=== PATIENT | male | born 1985 | race Caucasian/White ===

== ENCOUNTER 2019-06-20 19:35 | Observation (INO) | payer BC, MEDICAID ==
[2019-06-20 20:09] LABS: CHLORIDE,CL 103 mmol/L (98-107); SODIUM,NA 142 mmol/L (136-145)
[2019-06-20] MEDS ORDERED: Iopamidol 612 MG/ML 100 ML Bottle IVPUSH STA (20:12)
[2019-06-20] MEDS ORDERED: Sodium Chloride 0.9% 1,000 ML IV ONE ×2 (20:14→23:00)
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
[2019-06-20] MEDS ORDERED: Ondansetron 4 MG/2 ML SDV IVPUSH ONE (20:50)
[2019-06-20] MEDS ORDERED: Morphine 2 MG/ML Syringe IVPUSH ONE (20:50)
[2019-06-20] MEDS: Sodium Chloride 0.9% 10 ML Syringe FLUSH PRN (20:57)
[2019-06-20] MEDS ORDERED: Acetaminophen 325 MG Tab PO PRN (21:37)
[2019-06-20] MEDS ORDERED: Morphine 2 MG/ML Syringe IVPUSH PRN (21:42)
[2019-06-20] MEDS ORDERED: Ketorolac 30 MG/ML SDV IVPUSH ONE (21:42)
[2019-06-20] MEDS ORDERED: Ondansetron 4 MG/2 ML SDV IVPUSH PRN (21:42)
[2019-06-21 07:18] LABS: CHLORIDE,CL 107 mmol/L (98-107); SODIUM,NA 143 mmol/L (136-145)
--- NOTE | 2019-06-21 09:12 | PCM.DCSUM1 ---
Discharge Summary - Hospital Course HPI Initial Comments: See emergency room note/admission H&P Brief History: See emergency room note/admission H&P Diagnosis: Stroke: No Modified Cameron Scale: No Symptoms at All Modified Cameron Scale Score: 0 - Discharge Data Discharge Date: 06/21/19 Discharge Disposition: Home, Self-Care 01 Condition: Good - Referral to Home Health Primary Care Physician: PCP None - Discharge Diagnosis/Problem(s) (1) Trauma SNOMED Code(s): 395139786 ICD Code: T14.90XA - INJURY, UNSPECIFIED, INITIAL ENCOUNTER Status: Acute Priority: High Current Visit: Yes Onset Date: 06/20/19 Problem Details: Trauma code called by [facility] physician upon patient's arrival to the emergency room. Note moderate left chest wall contusion with second and third left anterior rib fractures by CT scan. Patient placed in observation status for further observation. Patient counseled on the dangers of 4 wheelers with caution advised, including wearing helmets, etc. during use, which the patient is not doing at this time. Symptomatic relief as per discharge instructions. The patient does not need a work excuse by his history. (2) Fracture of two ribs of left side SNOMED Code(s): 76557832 ICD Code: S22.42XA - MULTIPLE FRACTURES OF RIBS, LEFT SIDE, INIT FOR CLOS FX Status: Acute Priority: High Current Visit: Yes Onset Date: 06/20/19 Problem Details: Anterior rib fractures of 2nd and 3rd rib near sternum by CT scan. Otherwise as above. Qualifiers: Encounter type: initial encounter Fracture type: closed Qualified Code(s) : S22.42XA - Multiple fractures of ribs, left side, initial encounter for closed fracture (3) Contusion of chest SNOMED Code(s): 50922249 ICD Code: S20.219A - CONTUSION OF UNSPECIFIED FRONT WALL OF THORAX, INIT ENCNTR Status: Acute Priority: High Current Visit: Yes Onset Date: 06/20 Problem Details: Anterior chest wall pain is stable at this time. Symptomatic relief as per discharge instructions. CT confirmed 2 rib fractures. No other traumatic injuries identified at this time. Qualifiers: Encounter type: initial encounter Laterality: unspecified laterality Qualified Code(s): S20.219A - Contusion of unspecified front wall of thorax, initial encounter (4) Hypocalcemia SNOMED Code(s): 1141552 ICD Code: E83.51 - HYPOCALCEMIA Status: Acute Priority: Medium Current Visit: Yes Onset Date: 06/21/19 Problem Details: Calcium normal on admission. Observe for now. Note patient did receive 2 L of lactated Ringer's by bolus during course of hospitalization and emergency room care. (5) Elevated serum creatinine SNOMED Code(s): 542425197 ICD Code: R79.89 - OTHER SPECIFIED ABNORMAL FINDINGS OF BLOOD CHEMISTRY Status: Acute Priority: Medium Current Visit: Yes Onset Date: 06/20/19 Problem Details: Renal status normal at discharge. Note IV fluids during this hospitalization. - Patient Summary/Data Operative Procedure(s) Performed: None Complications: None Consults: None Labs Pending at D/C: Final radiological report of chest x-ray, PA and lateral, from 06/21/19. Recommended Follow-up Testing/Procedures: As per discharge instructions Planned Operative Procedure(s) after DC: None Hospital Course: The patient was initially evaluated in the emergency room with trauma code called secondary to mechanism of injury. Vital signs, physical exam, etc. have remained stable during the entire hospitalization. He feels ready to go home and was counseled extensively concerning safety issues of 4 hammonds use, etc., including use of helmets. No complications during this hospitalization with as needed follow-up depending on his clinical course. - Patient Instructions Diet: Regular Diet as Tolerated Activity: Apply Ice, As Tolerated Driving: May Drive Today Showering/Bathing: May Shower Notify Provider of: Fever, Increased Pain, Swelling and Redness, Nausea and/or Vomiting Other/Special Instructions: 1. Follow up with your regular provider in 10-14 days as needed, if symptoms persist. Bring these discharge instructions with you to that visit.. 2. BenGay or equivalent, heating pad, and/or ice packs as directed. 3. Tylenol 650 mg by mouth every 4 hours and/or OTC ibuprofen 2-3 tabs by mouth every 6 hours with food as directed./needed. You may stagger these medications for 48-72 hours only, which essentially means that you are receiving a pain medication about every 2 hours. 4. Immediately after this visit verify that your cellular telephone's voicemail has been activated and is empty. Also verify that your home telephone's answering machine is operating properly and has space to receive messages. Note that it is sometimes necessary for us to be able to contact you at a later date to discuss your medical care. 5. Please remember that we are ALWAYS here for you and want to answer any questions you may have. Feel free to call the hospital any time and we call you back KANDIS. - Discharge Plan *PRESCRIPTION DRUG MONITORING PROGRAM REVIEWED*: Not Applicable *COPY OF PRESCRIPTION DRUG MONITORING REPORT IN PATIENT PADMINI: Not Applicable Home Medications: Home Meds Acetaminophen [Tylenol] 650 mg PO Q4HR PRN 06/20/19 [History] Oxygen Therapy Mode: Room Air Patient Handouts: Incentive Spirometer Forms: ED Department Discharge Referrals: PCP,None [Primary Care Provider] - - Discharge Summary/Plan Comment DC Time >30 min.: Yes (Coordination of care ) Discharge Summary/Plan Comment: As above. Extensive precautions were given to the patient and his , who are in agreement with the treatment plan. See Patient Instructions for further treatment and plan. - General Info Date of Service: 06/21/19 Admission Dx/Problem (Free Text: 1. Trauma 2. Left rib fractures 3. Chest wall contusion Functional Status: Reports: Pain Controlled, Tolerating Diet, Ambulating, Urinating. Denies: New Symptoms, Incentive Spirometry Numeric/FACES Score: 5 - Review of Systems General: Denies: Fever, Weakness, Fatigue, Malaise, Chills, Night Sweats, Appetite (Appetite good) HEENT: Reports: Glasses. Denies: Dysphasia, Ear Pain, Eye Pain, Headaches, Post Nasal Drip, Sinus Congestion, Sore Throat, Visual Changes Pulmonary: Reports: Pleuritic Chest Pain, Other. Denies: Shortness of Breath, Cough, Sputum, Hemoptysis, Wheezing Cardiovascular: Reports: Chest Pain (Left anterior chest wall pain). Denies: Palpitations, Dyspnea on Exertion, Orthopnea, PND, Edema, Lightheadedness Gastrointestinal: Reports: No Symptoms, Other (No bowel movement during this hospitalization). Denies: Abdominal Pain, Constipation, Decreased Appetite, Diarrhea, Difficulty Swallowing, Flatus, Hematochezia, Melena, Nausea, Vomiting Genitourinary: Reports: No Symptoms. Denies: Dysuria, Frequency, Burning, Pain , Urgency, Incontinence, Hematuria, Retention, Flank Pain Musculoskeletal: Reports: No Symptoms. Denies: Neck Pain, Shoulder Pain, Arm Pain, Hand Pain, Back Pain, Leg Pain, Joint Pain, Joint Swelling Skin: Reports: Bruising (Stable left anterior chest wall contusion/ecchymosis). Denies: Jaundice, Pallor, Diaphoresis, Pruritis, Rash Neurological: Reports: No Symptoms. Denies: Confusion, Dizziness, Headache, Numbness, Paresthesia, Tingling, Weakness Psychiatric: Reports: No Symptoms. Denies: Confusion, Depression, Anxiety, Agitation, Cravings, Hallucinations - Patient Data Vitals - Most Recent: Last Vital Signs Temp 36.6 C 06/21/19 07:51 Pulse 77 06/21/19 07:51 Resp 17 06/21/19 07:51 BP 102/63 06/21/19 07:51 Pulse Ox 94 L 06/21/19 07:51 Vital Signs - 24 hr 06/20/19 06/21/19 06/21/19 21:37 00:00 04:00 Temperature [ 37.0 C 36.9 C 36.6 C Oral] Pulse, 84 83 74 Peripheral [ Pulse Oximetry] Respiratory 20 18 16 Rate Blood Pressure 123/88 114/74 113/73 [Right Upper Arm] O2 Sat by Pulse 100 95 95 Oximetry 06/21/19 07:51 Temperature [ 36.6 C Oral] Pulse, 77 Peripheral [ Pulse Oximetry] Respiratory 17 Rate Blood Pressure 102/63 [Right Upper Arm] O2 Sat by Pulse 94 L Oximetry Weight - Most Recent: 88.088 kg I&O - Last 24 hours: Intake & Output 06/20/19 06/21/19 06/21/19 22:59 06:59 14:59 Intake Total 1000 1000 360 Balance 1000 1000 360 Imaging Impressions - Last 24 hrs: Sales Project Administrator shows normal sinus rhythm in the 70s to 80s with no ectopy or arrhythmia Official x-ray reports from 06/21/19 were reviewed once again today as follows: 1. CT scan of the chest with IV contrast shows evidence of left second and third anterior rib fractures with no evidence of sternal fracture, pneumothorax , pulmonary contusions, etc. 2. Chest x-ray, PA and lateral, shows no evidence of acute injury with rib fractures apparently not visualized by this evaluation. Chest x-ray, PA and lateral, on 06/21/19 shows no evidence of Cardiolite, CHF, pulmonary infiltrates, pneumothorax, etc. Rib fractures somewhat difficult to visualize. Lab Results - Last 24 hrs: Laboratory Results - last 24 hr 06/20/19 06/20/19 06/20/19 Range/Units 19:45 19:45 20:06 WBC 8.3 (4.0-10.2) K/uL RBC 5.03 (4.33-5.41) M/uL Hgb 16.1 (13.1-16.8) g/dL Hct 46.6 (39.0-49.0) % MCV 92.6 (84.0-98.0) fL MCH 32.0 (28.2-33.3) pg MCHC 34.5 (31.7-36.0) g/dL RDW 12.5 (11.2-14.1) % Plt Count 263 (150-350) K/uL Neut % (Auto) 71.5 (45.0-80.0) % Lymph % (Auto) 21.7 (10.0-50.0) % [place] % (Auto) 5.5 (2.0-14.0) % Eos % (Auto) 1.1 (0.0-5.0) % Baso % (Auto) 0.2 (0.0-2.0) % Neut # (Auto) 5.93 (1.40-7.00) K/uL Lymph # (Auto) 1.80 (0.50-3.50) K/uL [place]linger # (Auto) 0.46 (0.00-1.00) K/uL Eos # (Auto) 0.09 (0.00-0.50) K/uL Baso # (Auto) 0.02 (0.00-0.20) K/uL Sodium 142 (136-145) mmol/L Potassium 4.0 (3.5-5.1) mmol/L Chloride 103 (98-107) mmol/L Carbon Dioxide 31.1 (21.0-32.0) mmol/L BUN 21 H (7-18) mg/dL Creatinine 1.47 H (0.51-1.17) mg/dL Est Cr Clr Drug Dosing TNP Estimated GFR (MDRD) 55 mL/min Glucose 122 H (74-106) mg/dL Calcium 9.1 (8.5-10.1) mg/dL Magnesium (1.8-2.4) mg/dL Total Bilirubin 0.6 (0.2-1.0) mg/dL AST 25 (15-37) U/L ALT 32 (12-78) U/L Alkaline Phosphatase 81 (46-116) IU/L Creatine Kinase (26-308) U/L Creatine Kinase Index (0.0-2.5) % CK-MB (CK-2) (0.00-3.60) ng/mL Total Protein 8.1 (6.4-8.2) g/dL Albumin 4.4 (3.4-5.0) g/dL Specimen Type Urinblad Urine Color Yellow Urine Appearance Clear Urine pH 7.0 (5.0-9.0) Ur Specific [place] 1.015 (1.005-1.030) Urine Protein Negative (NEGATIVE) mg/dL Urine Glucose (UA) Negative (NEGATIVE) mg/dL Urine Ketones Negative (NEGATIVE) mg/dL Urine Occult Blood Trace-intact H (NEGATIVE) Urine Nitrite Negative (NEGATIVE) Urine Bilirubin Negative (NEGATIVE) Urine Urobilinogen 0.2 (0.2-1.0) E.U./dL Ur Leukocyte Esterase Negative (NEGATIVE) Urine RBC 0-5 /HPF Urine WBC 0-5 /HPF Ur Epithelial Cells Rare /LPF Urine Bacteria Rare (NONE TO FEW) /HPF 06/21/19 06/21/19 06/21/19 Range/Units 07:00 07:00 07:00 WBC 6.8 (4.0-10.2) K/uL RBC 4.30 L (4.33-5.41) M/uL Hgb 13.8 D (13.1-16.8) g/dL Hct 40.7 (39.0-49.0) % MCV 94.7 (84.0-98.0) fL MCH 32.1 (28.2-33.3) pg MCHC 33.9 (31.7-36.0) g/dL RDW 12.6 (11.2-14.1) % Plt Count 195 (150-350) K/uL Neut % (Auto) 69.5 (45.0-80.0) % Lymph % (Auto) 19.6 (10.0-50.0) % Bollinger % (Auto) 10.1 (2.0-14.0) % Eos % (Auto) 0.7 (0.0-5.0) % Baso % (Auto) 0.1 (0.0-2.0) % Neut # (Auto) 4.74 (1.40-7.00) K/uL Lymph # (Auto) 1.34 (0.50-3.50) K/uL Bollinger # (Auto) 0.69 (0.00-1.00) K/uL Eos # (Auto) 0.05 (0.00-0.50) K/uL Baso # (Auto) 0.01 (0.00-0.20) K/uL Sodium 143 (136-145) mmol/L Potassium 4.0 (3.5-5.1) mmol/L Chloride 107 (98-107) mmol/L Carbon Dioxide 25.5 (21.0-32.0) mmol/L BUN 20 H (7-18) mg/dL Creatinine 1.17 (0.51-1.17) mg/dL Est Cr Clr Drug Dosing 88.12 Estimated GFR (MDRD) > 60 mL/min Glucose 106 (74-106) mg/dL Calcium 7.8 L (8.5-10.1) mg/dL Magnesium 2.2 (1.8-2.4) mg/dL Total Bilirubin 0.8 (0.2-1.0) mg/dL AST 17 (15-37) U/L ALT 25 (12-78) U/L Alkaline Phosphatase 64 (46-116) IU/L Creatine Kinase 251 (26-308) U/L Creatine Kinase Index 0.4 (0.0-2.5) % CK-MB (CK-2) 1.10 (0.00-3.60) ng/mL Total Protein 6.4 (6.4-8.2) g/dL Albumin 3.4 (3.4-5.0) g/dL Specimen Type Urine Color Urine Appearance Urine pH (5.0-9.0) Ur Specific [place] (1.005-1.030) Urine Protein (NEGATIVE) mg/dL Urine Glucose (UA) (NEGATIVE) mg/dL Urine Ketones (NEGATIVE) mg/dL Urine Occult Blood (NEGATIVE) Urine Nitrite (NEGATIVE) Urine Bilirubin (NEGATIVE) Urine Urobilinogen (0.2-1.0) E.U./dL Ur Leukocyte Esterase (NEGATIVE) Urine RBC /HPF Urine WBC /HPF Ur Epithelial Cells /LPF Urine Bacteria (NONE TO FEW) /HPF Laboratory Tests 06/20/19 06/20/19 06/20/19 Range/Units 19:45 19:45 20:06 WBC 8.3 (4.0-10.2) K/uL RBC 5.03 (4.33-5.41) M/uL Hgb 16.1 (13.1-16.8) g/dL Hct 46.6 (39.0-49.0) % MCV 92.6 (84.0-98.0) fL MCH 32.0 (28.2-33.3) pg MCHC 34.5 (31.7-36.0) g/dL RDW 12.5 (11.2-14.1) % Plt Count 263 (150-350) K/uL Neut % (Auto) 71.5 (45.0-80.0) % Lymph % (Auto) 21.7 (10.0-50.0) % Bollinger % (Auto) 5.5 (2.0-14.0) % Eos % (Auto) 1.1 (0.0-5.0) % Baso % (Auto) 0.2 (0.0-2.0) % Neut # (Auto) 5.93 (1.40-7.00) K/uL Lymph # (Auto) 1.80 (0.50-3.50) K/uL Bollinger # (Auto) 0.46 (0.00-1.00) K/uL Eos # (Auto) 0.09 (0.00-0.50) K/uL Baso # (Auto) 0.02 (0.00-0.20) K/uL Sodium 142 (136-145) mmol/L Potassium 4.0 (3.5-5.1) mmol/L Chloride 103 (98-107) mmol/L Carbon Dioxide 31.1 (21.0-32.0) mmol/L BUN 21 H (7-18) mg/dL Creatinine 1.47 H (0.51-1.17) mg/dL Est Cr Clr Drug Dosing TNP Estimated GFR (MDRD) 55 mL/min Glucose 122 H (74-106) mg/dL Calcium 9.1 (8.5-10.1) mg/dL Magnesium (1.8-2.4) mg/dL Total Bilirubin 0.6 (0.2-1.0) mg/dL AST 25 (15-37) U/L ALT 32 (12-78) U/L Alkaline Phosphatase 81 (46-116) IU/L Creatine Kinase (26-308) U/L Creatine Kinase Index (0.0-2.5) % CK-MB (CK-2) (0.00-3.60) ng/mL Total Protein 8.1 (6.4-8.2) g/dL Albumin 4.4 (3.4-5.0) g/dL Specimen Type Urinblad Urine Color Yellow Urine Appearance Clear Urine pH 7.0 (5.0-9.0) Ur Specific [place] 1.015 (1.005-1.030) Urine Protein Negative (NEGATIVE) mg/dL Urine Glucose (UA) Negative (NEGATIVE) mg/dL Urine Ketones Negative (NEGATIVE) mg/dL Urine Occult Blood Trace-intact H (NEGATIVE) Urine Nitrite Negative (NEGATIVE) Urine Bilirubin Negative (NEGATIVE) Urine Urobilinogen 0.2 (0.2-1.0) E.U./dL Ur Leukocyte Esterase Negative (NEGATIVE) Urine RBC 0-5 /HPF Urine WBC 0-5 /HPF Ur Epithelial Cells Rare /LPF Urine Bacteria Rare (NONE TO FEW) /HPF 06/21/19 06/21/19 06/21/19 Range/Units 07:00 07:00 07:00 WBC 6.8 (4.0-10.2) K/uL RBC 4.30 L (4.33-5.41) M/uL Hgb 13.8 D (13.1-16.8) g/dL Hct 40.7 (39.0-49.0) % MCV 94.7 (84.0-98.0) fL MCH 32.1 (28.2-33.3) pg MCHC 33.9 (31.7-36.0) g/dL RDW 12.6 (11.2-14.1) % Plt Count 195 (150-350) K/uL Neut % (Auto) 69.5 (45.0-80.0) % Lymph % (Auto) 19.6 (10.0-50.0) % [place]linger % (Auto) 10.1 (2.0-14.0) % Eos % (Auto) 0.7 (0.0-5.0) % Baso % (Auto) 0.1 (0.0-2.0) % Neut # (Auto) 4.74 (1.40-7.00) K/uL Lymph # (Auto) 1.34 (0.50-3.50) K/uL [place]linger # (Auto) 0.69 (0.00-1.00) K/uL Eos # (Auto) 0.05 (0.00-0.50) K/uL Baso # (Auto) 0.01 (0.00-0.20) K/uL Sodium 143 (136-145) mmol/L Potassium 4.0 (3.5-5.1) mmol/L Chloride 107 (98-107) mmol/L Carbon Dioxide 25.5 (21.0-32.0) mmol/L BUN 20 H (7-18) mg/dL Creatinine 1.17 (0.51-1.17) mg/dL Est Cr Clr Drug Dosing 88.12 Estimated GFR (MDRD) > 60 mL/min Glucose 106 (74-106) mg/dL Calcium 7.8 L (8.5-10.1) mg/dL Magnesium 2.2 (1.8-2.4) mg/dL Total Bilirubin 0.8 (0.2-1.0) mg/dL AST 17 (15-37) U/L ALT 25 (12-78) U/L Alkaline Phosphatase 64 (46-116) IU/L Creatine Kinase 251 (26-308) U/L Creatine Kinase Index 0.4 (0.0-2.5) % CK-MB (CK-2) 1.10 (0.00-3.60) ng/mL Total Protein 6.4 (6.4-8.2) g/dL Albumin 3.4 (3.4-5.0) g/dL Specimen Type Urine Color Urine Appearance Urine pH (5.0-9.0) Ur Specific [place] (1.005-1.030) Urine Protein (NEGATIVE) mg/dL Urine Glucose (UA) (NEGATIVE) mg/dL Urine Ketones (NEGATIVE) mg/dL Urine Occult Blood (NEGATIVE) Urine Nitrite (NEGATIVE) Urine Bilirubin (NEGATIVE) Urine Urobilinogen (0.2-1.0) E.U./dL Ur Leukocyte Esterase (NEGATIVE) Urine RBC /HPF Urine WBC /HPF Ur Epithelial Cells /LPF Urine Bacteria (NONE TO FEW) /HPF ELAINE Results - Last 24 hrs: None Med Orders - Current: Current Medications Acetaminophen (Tylenol) 650 mg PO Q4H PRN PRN Reason: analgesia/fever Ketorolac Tromethamine (Toradol) 30 mg IVPUSH Q6H PRN PRN Reason: Pain Stop: 06/25/19 21:44 Last Admin: 06/21/19 00:00 Dose: 30 mg Morphine Sulfate (Morphine) 2 mg IVPUSH Q2H PRN PRN Reason: Pain (moderate 4-6) Last Admin: 06/20/19 23:58 Dose: 2 mg Ondansetron HCl (Zofran) 4 mg IVPUSH Q6H PRN PRN Reason: Nausea/Vomiting Sodium Chloride (Saline Flush) 10 ml FLUSH ASDIRECTED PRN PRN Reason: Keep Vein Open Last Admin: 06/20/19 20:57 Dose: 10 ml Discontinued Medications Sodium Chloride (Normal Saline) 1,000 mls @ 500 mls/hr IV .BOLUS ONE Stop: 06/20/19 22:13 Last Admin: 06/20/19 20:18 Dose: 500 mls/hr Sodium Chloride (Normal Saline) 1,000 mls @ 200 mls/hr IV .BOLUS ONE Stop: 06/21/19 03:59 Last Admin: 06/20/19 22:50 Dose: 200 mls/hr Iopamidol (Isovue-300 (61%)) 100 ml IVPUSH ONETIME STA Stop: 06/20/19 20:13 Last Admin: 06/20/19 20:31 Dose: 100 ml Ketorolac Tromethamine (Toradol) 30 mg IVPUSH ONETIME ONE Stop: 06/20/19 21:43 Last Admin: 06/20/19 22:31 Dose: Not Given Morphine Sulfate (Morphine) 2 mg IVPUSH ONETIME ONE Stop: 06/20/19 20:51 Last Admin: 06/20/19 20:55 Dose: 2 mg Ondansetron HCl (Zofran) 4 mg IVPUSH ONETIME ONE Stop: 06/20/19 20:51 Last Admin: 06/20/19 20:55 Dose: 4 mg - Exam Quality Assessment: Reports: DVT Prophylaxis. Denies: Supplemental Oxygen, Central Line/PICC, Urine Catheter, Skin Breakdown, Restraints General: Reports: Alert, Oriented, Cooperative, No Acute Distress HEENT: Reports: Pupils Equal, Pupils Reactive, EOMI, Mucous Membr. Moist/[place], Other (Patient wearing glasses). Denies: Scleral Icterus Neck: Reports: Supple, Trachea Midline, No JVD, No Thyromegaly, +2 Carotid Pulse wo Bruit, Other (No cervical tenderness, spasms, etc. with full range of motion). Denies: Lymphadenopathy Lungs: Reports: Clear to Auscultation, Normal Respiratory Effort, Other (4 cm in length mild ecchymosis in the left superior peristernal region at site of rib fractures. No crepitation, significant swelling, etc.). Denies: Rub Cardiovascular: Reports: Regular Rate, Regular Rhythm. Denies: Murmurs, Gallops , Rubs GI/Abdominal Exam: Normal Bowel Sounds, Soft, Non-Tender, No Organomegaly, No Distention, No Abnormal Bruit, No Mass, Pelvis Stable. No: Guarding (Male) Exam: Deferred Rectal (Males) Exam: Deferred Back Exam: Reports: Normal Inspection, Full Range of Motion. Denies: CVA Tenderness (L), CVA Tenderness (R), Muscle Spasm Extremities: Normal Inspection, Normal Range of Motion, Non-Tender, No Pedal Edema, Normal Capillary Refill. No: Asia's Sign Skin: Reports: Ecchymosis (As above) Neurological: Reports: No New Focal Deficit Psy/Mental Status: Reports: Alert, Normal Affect, Normal Mood. Denies: Labile Mood, Agitated, Hallucinations, Withdrawal Symptoms
[2019-06-21] MEDS: Sodium Chloride 0.9% 10 ML Syringe FLUSH PRN (10:37)
[2019-06-21] MEDS: Ketorolac 30 MG/ML SDV IVPUSH PRN ×2 (10:37)
== END 2019-06-21 10:45 | disposition home or self-care (01) ==
LOC: LL.ED 19:35 → LL.MS 21:34 → UNDOADMOB 21:34
PROVIDERS: ADMIT Emergency Medicine; ATTEND Family Medicine
DX: S22.42XA Multiple fractures of ribs, left side, initial encounter for closed fracture (principal); S20.212A Contusion of left front wall of thorax, initial encounter; E83.51 Hypocalcemia; R79.89 Other specified abnormal findings of blood chemistry; V03.00XA Pedestrian on foot injured in collision with car, pick-up truck or van in nontraffic accident, initial encounter
CPT/HCPCS: 36415; 71046; 71260; 74019; 80053; 81001; 82550; 82553; 83735; 85025; 96361; 96374; 96375; 96376; 99285-25; G0378; J1885; J2270; J2405; J7030; Q9967

== ENCOUNTER 2023-05-06 12:45 | Emergency (ER) | payer BC, MEDICAID ==
[2023-05-06] MEDS: Tetracaine HCl/PF 0.5% 4 ML Bottle EYELF ONE (13:35)
== END 2023-05-06 14:01 | disposition home or self-care (01) ==
LOC: LL.ED 12:45
DX: S05.02XA Injury of conjunctiva and corneal abrasion without foreign body, left eye, initial encounter (principal); W22.09XA Striking against other stationary object, initial encounter; Y99.0 Civilian activity done for income or pay
CPT/HCPCS: 99283; J3490